=== PATIENT | male | born 1980 | race African-American/Black ===

== ENCOUNTER 2016-07-20 16:26 | Emergency (ER) | payer OTHER ==
[2016-07-20 18:07] VITALS: BP 152/89
--- NOTE | 2016-07-20 19:31 | UC ---
Headache HPI - HPI Summary HPI Summary: The patient comes in today for: 1. Headache: Onset: 3-4 days. Palliative/provocative: Stress makes the headache and dehydration makes the headache worse. Quality: Pressure, stinging. Region: Bitemporal Severity: 5/10 Time: Comes and goes. Associated symptoms: Fevers: None. History of headaches: None. Head injury: None. Family history: NOne Nausea: None. Focal weakness or numbness: Not at this time. HE walked in OK. * - History Of Current Complaint Chief Complaint: UCRespiratory Stated Complaint: ACHES, AND HEADACHES Time Seen by Provider: 07/20/16 19:23 Hx Obtained From: Patient - Allergies/Home Medications Allergies/Adverse Reactions: Allergies Allergy/AdvReac Type Severity Reaction Status Date / Time No Known Allergies Allergy Verified 07/20/16 18:07 Home Medications: Home Medications Ibuprofen TAB* [Motrin TAB* 600 MG] 07/20/16 [History Confirmed 07/20/16] PMH/Surg Hx/FS Hx/Imm Hx Previously Healthy: No Endocrine History Of: Denies: Diabetes, Thyroid Disease, Hyperthyroidism, Hypothyroidism, Dyslipidemia Cardiovascular History Of: Denies: Cardiac Disorders, Hypertension, Pacemaker/ICD, Myocardial Infarction , Congestive Heart Failure, Atrial Fibrillation, Deep Vein Thrombosis, Bleeding Disorders Respiratory History Of: Reports: Asthma Denies: COPD, Bronchitis, Pneumonia, Pulmonary Embolism GI/ History Of: Denies: Gastroesophageal Reflux, Ulcer, Gastrointestinal Bleed, Gall Bladder Disease, Kidney Stones, Diverticulitis, Renal Disease, Urosepsis Neurological History Of: Denies: TIA, CVA, Dementia, Seizures, Migraine Psychological History Of: Denies: Anxiety, Depression, Bipolar Disorder, Schizophrenia, Post Traumatic Stress Disorder Cancer History Of: Denies: Lung Cancer, Colorectal Cancer, Breast Cancer, Prostate Cancer, Cervical Cancer Other History Of: Negative For: HIV, Hepatitis B, Hepatitis C, Anticoagulant Therapy - Surgical History Surgical History: None - Family History Known Family History: Positive: Hypertension, Diabetes - Social History Occupation: Employed Full-time Alcohol Use: Rare Alcohol Amount: pt denies Substance Use Type: None Substance Use Comment - Amount & Last Used: pt denies Smoking Status (MU): Current Some Day Smoker Type: Cigarettes Amount Used/How Often: 5 PER DAY Length of Time of Smoking/Using Tobacco: 15 years Have You Smoked in the Last Year: Yes When Did the Patient Quit Smoking/Using Tobacco: quit 6 weeks ago Household Exposure Type: Cigarettes - Immunization History Most Recent Influenza Vaccination: never Most Recent Tetanus Shot: UTD Review of Systems Constitutional: Negative Skin: Negative Eyes: Negative ENT: Negative Respiratory: Cough - "I have a little cough sometimes." Cardiovascular: Negative Gastrointestinal: Negative Genitourinary: Negative All Other Systems Reviewed And Are Negative: Yes Physical Exam Triage Information Reviewed: Yes Appearance: Well-Appearing, No Pain Distress, Well-Nourished Vital Signs: Initial Vital Signs Temp 98.7 F 07/20/16 17:59 Pulse 72 07/20/16 17:59 Resp 12 07/20/16 17:59 BP 152/89 07/20/16 17:59 Pulse Ox 99 07/20/16 17:59 Vital Signs Reviewed: Yes Eyes: Positive: Conjunctiva Clear. Negative: Discharge ENT: Positive: Hearing grossly normal. Negative: Pharyngeal erythema, Nasal congestion, Nasal drainage, TM bulging, TM dull, TM red, Tonsillar swelling, Tonsillar exudate Dental: Negative: Gross Decay/Caries @, Dental Fracture @ Neck: Positive: Supple, Nontender, No Lymphadenopathy. Negative: Nuchal Rigidity Respiratory: Positive: Lungs clear, No respiratory distress, No accessory muscle use. Negative: Crackles, Wheezing Cardiovascular: Positive: RRR, No Murmur Abdomen Description: Positive: Nontender, No Organomegaly, Soft. Negative: Distended, Guarding Musculoskeletal: Positive: Strength Intact, ROM Intact Neurological: Positive: Alert, Muscle Tone Normal, Other: - Neurologic exam: Inspection: no fasciculations. Cranial nerves (II-XII): intact Muscular tone: Reflexes: Biceps: 2+/2 x 2 Triceps: 2+/2 x 2 Brachioradialis: 2+/2 x 2 Patellar: 2+/2 x 2 Achilles: 2+/2 x 2 Coordination: Upper extremity: Alternating patting of thighs, alternating fingertips to thumb, index finger tip to nose--all normal. Lower extremity: Heel along guerrero--normal. Strength: Upper extremity: appropriate for age and symmetrical Lower extremity: appropriate for age and symmetrical Gait: Regular: Normal. Heel to toe: Normal. Rhomberg: Normal. Sensation: No complaint of numbness. Headache Course/Dx - Course Course Of Treatment: Patient was told of his treatment options. He wants to go with prescription NSAIDS. - Differential Dx/Diagnosis Provider Diagnoses: Headache Discharge - Discharge Plan Condition: Stable Disposition: HOME Patient Education Materials: General Headache (ED) Forms: *Work Release Referrals: Petty Maldonado MD [Primary Care Provider] - 1 Week (Please see your primary care provider in a week to see how well you are doing. If you get worse, please be seen sooner in the ER or through us.)
[2016-07-20] MEDS ORDERED: Naproxen TAB* 250 MG PO ONE (19:53)
[2016-07-20] MEDS ORDERED: Ibuprofen TAB* 400 MG PO ONE (19:56)
== END 2016-07-20 20:02 | disposition home or self-care (01) ==
LOC: UCEAST 16:26
DX: R51 Headache (principal); Z72.0 Tobacco use
CPT/HCPCS: 99212; A9270-GY; G0463

== ENCOUNTER 2019-03-22 07:28 | Emergency (ER) | payer OTHER ==
[2019-03-22 07:42] VITALS: BP 123/71
--- NOTE | 2019-03-22 08:00 | UC ---
Throat Pain/Nasal Mac HPI - HPI Summary HPI Summary: 3 DAYS OF PAIN IN THE BACK OF HIS THROAT AND MILD HEADACHE. SYMPTOMS IMPROVED WITH OTC ANALGESICS. NO PAIN WITH SWALLOWING. NO CONGESTION, FEVER OR SINUS PRESSURE. STATES HE HAS HAD A VERY MILD COUGH. - History of Current Complaint Chief Complaint: UCGeneralIllness Stated Complaint: SORE THROAT Time Seen by Provider: 03/22/19 07:47 Hx Obtained From: Patient Onset/Duration: Gradual Onset, Lasting Days, Still Present Severity: Moderate Pain Intensity: 5 Pain Scale Used: 0-10 Numeric Cough: Nonproductive Associated Signs & Symptoms: Negative: Wheezing, Hoarseness, Sinus Discomfort, Nasal Discharge, Fever - Allergies/Home Medications Allergies/Adverse Reactions: Allergies Allergy/AdvReac Type Severity Reaction Status Date / Time No Known Allergies Allergy Verified 03/22/19 07:45 Home Medications: Home Medications Acetaminophen [Tylenol] 650 mg PO Q4H PRN 03/22/19 [History Confirmed 03/22/19] PMH/Surg Hx/FS Hx/Imm Hx Respiratory History: Asthma Other History Of: Negative For: HIV, Hepatitis B, Hepatitis C, Anticoagulant Therapy - Surgical History Surgical History: None - Family History Known Family History: Positive: Hypertension, Diabetes - Social History Alcohol Use: Rare Alcohol Amount: pt denies Substance Use Type: None Substance Use Comment - Amount & Last Used: pt denies Smoking Status (MU): Current Some Day Smoker Type: Cigarettes Amount Used/How Often: 5 PER DAY Length of Time of Smoking/Using Tobacco: 15 years Have You Smoked in the Last Year: Yes When Did the Patient Quit Smoking/Using Tobacco: quit 6 weeks ago Household Exposure Type: Cigarettes - Immunization History Most Recent Influenza Vaccination: never Most Recent Tetanus Shot: UTD Review of Systems All Other Systems Reviewed And Are Negative: Yes Constitutional: Positive: Negative ENT: Positive: Sore Throat Respiratory: Positive: Cough Cardiovascular: Positive: Negative Gastrointestinal: Positive: Negative Neurological: Positive: Headache Physical Exam Triage Information Reviewed: Yes Appearance: Well-Appearing, No Pain Distress, Well-Nourished Vital Signs: Initial Vital Signs Temp 97.0 F 03/22/19 07:36 Pulse 67 03/22/19 07:36 Resp 18 03/22/19 07:36 BP 123/71 03/22/19 07:36 Pulse Ox 100 03/22/19 07:36 Laboratory Tests 03/22/19 07:48 Group A Strep Rapid Negative Eyes: Positive: Conjunctiva Clear ENT: Positive: Hearing grossly normal, Pharynx normal, TMs normal - FLUID BEHIND RIGHT TM Neck: Positive: Supple, Nontender, No Lymphadenopathy Respiratory Exam: Normal Cardiovascular Exam: Normal Abdomen Description: Positive: Soft Musculoskeletal: Positive: No Edema Neurological: Positive: Alert Psychological: Positive: Age Appropriate Behavior Skin: Negative: Rashes Throat Pain/Nasal Course/Dx - Differential Dx/Diagnosis Provider Diagnosis: Acute pharyngitis Discharge ED - Sign-Out/Discharge Documenting (check all that apply): Patient Departure All imaging exams completed and their final reports reviewed: No Studies - Discharge Plan Condition: Stable Disposition: HOME Patient Education Materials: Pharyngitis (ED) Referrals: Carmen Strong DO [Primary Care Provider] - If Needed Additional Instructions: STREP TEST NEGATIVE. YOUR SYMPTOMS ARE LIKELY VIRALLY MEDIATED AND SHOULD RESOLVE ON THEIR OWN WITH TIME. NO INDICATION FOR ANTIBIOTICS AT PRESENT. REST, HYDRATE, OTC MEDS NEEDED. SEEK FOLLOW-UP IF YOU ARE NOT IMPROVING OVER THE NEXT 1-2 WEEKS. - Billing Disposition and Condition Condition: STABLE Disposition: Home
== END 2019-03-22 08:17 | disposition home or self-care (01) ==
LOC: UCEAST 07:28
DX: J02.9 Acute pharyngitis, unspecified (principal); R51 Headache; J45.909 Unspecified asthma, uncomplicated; F17.210 Nicotine dependence, cigarettes, uncomplicated
CPT/HCPCS: 87651; 99211; G0463